=== PATIENT | female | born 1970 | race Caucasian/White ===

== ENCOUNTER 2016-12-03 12:03 | Emergency (ER) | payer BC ==
[~2016-12-03] VITALS: Ht 165.1 cm; Wt 81.2 kg
[2016-12-03 15:03] LABS: BASOPHIL % 0.4 % (0-2); PLATELET COUNT 253 x10^3mcL (130-400)
[2016-12-03 15:05] LABS: RED CELL DISTRIBUTION WIDTH 16.1 % (11.5-14.5)
[2016-12-03 15:08] LABS: urine erythrocyte NEGATIVE (NEGATIVE)
[2016-12-03 15:10] LABS: microscopic required? YES
[2016-12-03 17:52] VITALS: BP 125/72
== END 2016-12-03 17:52 | disposition home or self-care (01) ==
LOC: ED 12:03
PROVIDERS: Emergency Medicine Emergency Medical Services
DX: R10.2 Pelvic and perineal pain (principal)
CPT/HCPCS: 36415; 87491; 87591; J1885; Q0092

== ENCOUNTER 2018-09-10 16:10 | Emergency (ER) | payer BC ==
[~2018-09-10] VITALS: Ht 165.1 cm; Wt 80.3 kg
[2018-09-10 16:14] VITALS: BP 123/76; Ht 165.1 cm; Wt 80.3 kg
== END 2018-09-10 19:17 | disposition home or self-care (01) ==
LOC: ED 16:10
DX: L03.112 Cellulitis of left axilla (principal)